=== PATIENT | male | born 1985 | race Caucasian/White ===

== ENCOUNTER 2020-08-20 08:50 | Emergency (ER) | payer SELFPAY ==
[~2020-08-20] VITALS: Ht 162 cm; Wt 86.0 kg
[2020-08-20 09:19] LABS: BACTERIA,URINE NEGATIVE /HPF; BILIRUBIN,URINE NEGATIVE (NEGATIVE); CLARITY,URINE CLEAR; COLOR,URINE YELLOW; GLUCOSE, URINE (UA) NEGATIVE (NEGATIVE); KETONES,URINE NEGATIVE (NEGATIVE); LEUKOCYTE ESTERASE ,URINE NEGATIVE (NEGATIVE); NITRITE,URINE NEGATIVE (NEGATIVE); PROTEIN,URINE NEGATIVE (NEGATIVE); RBC,URINE RARE /HPF; SQUAMOUS EPITHELIAL CELL,UR RARE /HPF
[2020-08-20 09:22] LABS: HEMATOCRIT 49 % (40-54); HEMOGLOBIN 17.8 G/DL (13.3-17.7); MEAN CORPUSCULAR HEMOGLOBIN 30 PG (25-34); MEAN CORPUSCULAR HGB CONC 36 G/DL (32-36); MEAN CORPUSCULAR VOLUME 83 FL (80-99); MEAN PLATELET VOLUME 9.6 FL (7.4-10.4); PLATELET COUNT 236 10^3/uL (130-400)
[2020-08-20 09:23] LABS: BASOPHILS % (AUTO) 0 % (0-10); EOSINOPHILS # (AUTO) 0.1 10^3/uL (0.0-0.3); EOSINOPHILS % (AUTO) 1 % (0-10); LYMPHOCYTES # (AUTO) 1.3 X 10^3 (1.0-4.0); LYMPHOCYTES % (AUTO) 14 % (12-44); MONOCYTES # (AUTO) 0.5 X 10^3 (0.0-1.0); MONOCYTES % (AUTO) 5 % (0-12); NEUTROPHILS # (AUTO) 7.1 X 10^3 (1.8-7.8); NEUTROPHILS % (AUTO) 79 % (42-75)
--- NOTE | 2020-08-20 09:30 | ED General ---
General Chief Complaint: General Problems/Pain Stated Complaint: HIGH BP; DIZZINESS; EXTREMITY TINGLING; HEADACHE Nursing Triage Note: PT WENT TO FOR A HEADACHE AND THEY SENT HIM TO ER. PT REPORTS HE DRANK A BREAKFAST DRINK THEN STARTED GETTING A HEADACHE AND HIS ARMS AND LEGS WERE FEELING TINGLY. Nursing Sepsis Screen: No Definite Risk Source of Information: Patient History of Present Illness Date Seen by Provider: Aug 20, 2020 Time Seen by Provider: 09:00 Initial Comments 35-year-old male presents as referral from the urgent care clinic for high blood pressure evaluation. Patient denies history of high blood pressure, denies that he is ever been on high blood pressure medication. He went to the urgent care this morning because he had a headache as well as some tingling in his fingertips. He took 1000 mg of ibuprofen and says that he is feeling better and no longer has tingling in his fingertips. He denies any chest pain, palpi tations, swelling of extremities, cough or shortness of air. He denies any recent illness, fever or chills. Denies any significant past medical history Allergies and Home Medications Home Medications Lisinopril/Hydrochlorothiazide 1 Each Tablet, 1 EACH PO DAILY Prescribed by: SUSAN MINAYA on 08/20/20 6254 Patient Home Medication List Home Medication List Reviewed: Yes Review of Systems Review of Systems Constitutional: No fever, No malaise, No weakness Respiratory: No cough, No short of breath Cardiovascular: No chest pain, No edema, No palpitations, No syncope, No vascu lar heart diseas Gastrointestinal: No abdominal pain, No loss of appetite, No nausea, No vomiting Musculoskeletal: No back pain, No joint pain Skin: No change in color Psychiatric/Neurological: Headache (resolved); Denies Numbness, Denies Paresthesia; Tingling (resolved in fingertips); Denies Weakness Past Loqkydu-Cmovro-Pusqdi Hx Past Med/Social Hx: Reviewed Nursing Past Med/Soc Hx Patient Social History Alcohol Use: Regular Use Alcohol Beverage of Choice: Beer Smoking Status: Current Everyday Smoker Type Used: Cigarettes 2nd Hand Smoke Exposure: No Recent Infectious Disease Expo: No Recent Hopitalizations: No Seasonal Allergies Seasonal Allergies: No Past Medical History Surgeries: No Respiratory: No Cardiac: Yes Pericarditis Neurological: No Genitourinary: No Gastrointestinal: No Musculoskeletal: No Endocrine: No HEENT: No Cancer: No Psychosocial: No Integumentary: No Blood Disorders: No Physical Exam Vital Signs Vital Signs - First Documented 08/20/20 08:53 Temp 36.0 Pulse 57 Resp 18 B/P (MAP) 179/104 (129) Pulse Ox 98 Capillary Refill : Less Than 3 Seconds Height, Weight, BMI Height: '" Weight: lbs. oz. kg; 32.00 BMI Method: General Appearance: No Apparent Distress, WD/WN Eyes: Bilateral Eye Normal Inspection, Bilateral Eye PERRL, Bilateral Eye EOMI HEENT: PERRL/EOMI, Normal ENT Inspection Neck: Full Range of Motion, Non Tender, Supple Respiratory: Chest Non Tender, Lungs Clear, Normal Breath Sounds Cardiovascular: Regular Rate, Rhythm, No Edema, No Gallop, No JVD, No Murmur, Normal Peripheral Pulses Gastrointestinal: No Organomegaly, Non Tender, Soft Back: Normal Inspection, No CVA Tenderness Extremity: Normal Capillary Refill, Normal Inspection, Non Tender, No Calf Tenderness Neurologic/Psychiatric: Alert, Oriented x3, No Motor/Sensory Deficits, Normal Mood/Affect Skin: Normal Color, Warm/Dry Progress/Results/Core Measures Suspected Sepsis Recent Fever Within 48 Hours: No Infection Criteria Present: None New/Unexplained Altered Menta: No Sepsis Screen: No Definite Risk SIRS Temperature: Pulse: 57 Respiratory Rate: 18 Laboratory Tests 08/20/20 09:08: White Blood Count 9.0 Blood Pressure 179 /104 Mean: 129 Laboratory Tests 08/20/20 09:08: Creatinine 0.85, Platelet Count 236, Total Bilirubin 0.4 Results/Orders Lab Results Laboratory Tests Test 08/20/20 08:53 08/20/20 09:08 Range/Units Urine Color YELLOW Urine Clarity CLEAR Urine pH 7.0 5-9 Urine Specific [place] 1.020 1.016-1.022 Urine Protein NEGATIVE NEGATIVE Urine Glucose (UA) NEGATIVE NEGATIVE Urine Ketones NEGATIVE NEGATIVE Urine Nitrite NEGATIVE NEGATIVE Urine Bilirubin NEGATIVE NEGATIVE Urine Urobilinogen 0.2 < = 1.0 MG/DL Urine Leukocyte Esterase NEGATIVE NEGATIVE Urine RBC (Auto) NEGATIVE NEGATIVE Urine RBC RARE /HPF Urine WBC NONE /HPF Urine Squamous Epithelial Cells RARE /HPF Urine Crystals NONE /LPF Urine Bacteria NEGATIVE /HPF Urine Casts NONE /LPF Urine Mucus NEGATIVE /LPF Urine Culture Indicated NO White Blood Count 9.0 4.3-11.0 10^3/uL Red Blood Count 5.93 H 4.35-5.85 10^6/uL Hemoglobin 17.8 H 13.3-17.7 G/DL Hematocrit 49 40-54 % Mean Corpuscular Volume 83 80-99 FL Mean Corpuscular Hemoglobin 30 25-34 PG Mean Corpuscular Hemoglobin Concent 36 32-36 G/DL Red Cell Distribution Width 11.9 10.0-14.5 % Platelet Count 236 130-400 10^3/uL Mean Platelet Volume 9.6 7.4-10.4 FL Immature Granulocyte % (Auto) 1 % Neutrophils (%) (Auto) 79 H 42-75 % Lymphocytes (%) (Auto) 14 12-44 % Monocytes (%) (Auto) 5 0-12 % Eosinophils (%) (Auto) 1 0-10 % Basophils (%) (Auto) 0 0-10 % Neutrophils # (Auto) 7.1 1.8-7.8 X 10^3 Lymphocytes # (Auto) 1.3 1.0-4.0 X 10^3 Monocytes # (Auto) 0.5 0.0-1.0 X 10^3 Eosinophils # (Auto) 0.1 0.0-0.3 10^3/uL Basophils # (Auto) 0.0 0.0-0.1 10^3/uL Immature Granulocyte # (Auto) 0.1 0.0-0.1 10^3/uL Sodium Level 135 135-145 MMOL/L Potassium Level 3.9 3.6-5.0 MMOL/L Chloride Level 103 98-107 MMOL/L Carbon Dioxide Level 19 L 21-32 MMOL/L Anion Gap 13 5-14 MMOL/L Blood Urea Nitrogen 16 7-18 MG/DL Creatinine 0.85 0.60-1.30 MG/DL Estimat Glomerular Filtration Rate > 60 BUN/Creatinine Ratio 19 Glucose Level 134 H 70-105 MG/DL Calcium Level 9.4 8.5-10.1 MG/DL Corrected Calcium 9.0 8.5-10.1 MG/DL Total Bilirubin 0.4 0.1-1.0 MG/DL Aspartate Amino Transf (AST/SGOT) 22 5-34 U/L Alanine Aminotransferase (ALT/SGPT) 30 0-55 U/L Alkaline Phosphatase 71 40-136 U/L Total Protein 7.6 6.4-8.2 GM/DL Albumin 4.5 3.2-4.5 GM/DL My Orders Orders - SUSAN MINAYA DO Ekg Tracing (08/20/20 09:08) Cbc With Automated Diff (08/20/20 09:08) Comprehensive Metabolic Panel (08/20/20 09:08) Urinalysis (08/20/20 09:08) Vital Signs/I&O 08/20/20 08:53 Temp 36.0 Pulse 57 Resp 18 B/P (MAP) 179/104 (129) Pulse Ox 98 Capillary Refill : Less Than 3 Seconds Blood Pressure Mean: 129 Progress Note : Progress Note asymptomatic during ER visit and at departure. Discussed treating HTN and f/u w PCP (if he would like in 2 days as scheduled) in 2 weeks for re-eval for HTN on new medication. ECG Initial ECG Impression Date: Aug 20, 2020 Initial ECG Impression Time: 09:10 Initial ECG Rate: 48 Initial ECG Rhythm: Normal Sinus Initial ECG Intervals: Normal Initial ECG Comparisson: Unchanged (from ECG 01/04/2016) Departure Impression Primary Impression: Hypertension Qualified Codes: I10 - Essential (primary) hypertension Disposition: 01 HOME, SELF-CARE Condition: Stable Departure-Patient Inst. Decision time for Depature: 09:44 Referrals: NO,LOCAL PHYSICIAN (PCP/Family) Primary Care Physician Patient Instructions: High Blood Pressure (DC) Add. Discharge Instructions: Keep your follow up appointment with your PCP scheduled in 2 days if you would like, otherwise see your PCP in 2 weeks for re-eval for HTN on new med All discharge instructions reviewed with patient and/or family. Voiced understanding. Scripts Lisinopril/Hydrochlorothiazide (Lisinopril-Hctz 10-12.5 mg Tab) 1 Each Tablet 1 EACH PO DAILY, #30 TAB Prov: SUSAN MINAYA DO 08/20/20 SUSAN MINAYA DO Aug 20, 2020 09:30
[2020-08-20 09:36] LABS: POTASSIUM 3.9 MMOL/L (3.6-5.0); SODIUM 135 MMOL/L (135-145)
[2020-08-20 09:37] LABS: ALANINE AMINOTRANSFERASE 30 U/L (0-55); ALBUMIN 4.5 GM/DL (3.2-4.5); ALKALINE PHOSPHATASE 71 U/L (40-136); BILIRUBIN,TOTAL 0.4 MG/DL (0.1-1.0); BUN/CREATININE RATIO 19; CALCIUM 9.4 MG/DL (8.5-10.1); CARBON DIOXIDE 19 MMOL/L (21-32); CHLORIDE 103 MMOL/L (98-107); CREATININE SERUM 0.85 MG/DL (0.60-1.30); GFR ESTIMATED > 60; GLUCOSE 134 MG/DL (70-105); TOTAL PROTEIN 7.6 GM/DL (6.4-8.2)
[2020-08-20] MEDS ORDERED: LISI1TAB29 PO (09:44)
[2020-08-20 09:55] VITALS: BP 178/99
== END 2020-08-20 09:48 | disposition home or self-care (01) ==
LOC: ER FS 08:53
DX: I10 Essential (primary) hypertension (principal); F17.210 Nicotine dependence, cigarettes, uncomplicated
CPT/HCPCS: 36415; 80053; 81000; 85025; 93005

== ENCOUNTER 2021-05-19 18:22 | Emergency (ER) | payer SELFPAY ==
[~2021-05-19] VITALS: Ht 170 cm; Wt 88.0 kg
[~2021-05-19 18:22] MED LIST: LISI1TAB44 PO
[2021-05-19] MEDS ORDERED: PROMETHAZINE/ CODEINE SYRUP 5 ML UDC PO STA (19:22)
--- NOTE | 2021-05-19 19:25 | ED General ---
General Chief Complaint: General Problems/Pain Stated Complaint: COUGH,PASSING OUT,LT ELBOW PAIN Nursing Triage Note: COUGH X 2 MONTHS. STARTED PASSING OUT YESTERDAY WHEN HE COUGHS. PRODUCTIVE COUGH TODAY. PASSED OUT YESTERDAY AND HIT HIS ELBOW ON CONCRETE. Source of Information: Patient History of Present Illness Date Seen by Provider: May 19, 2021 Time Seen by Provider: 19:02 Initial Comments 36-year-old male presenting with complaint of cough for over 2 months. He feels that the cough has been worse in the last few days. He has productive yellow sputum with his cough. Yesterday he was coughing so hard to the point that he passed out x2. He fell and hit his left elbow while this time said he passed out. He denies any fever or chills. He denies having headache, abdominal pain, nausea, vomiting, diarrhea, pain with urination, feeling dizzy or lightheaded. He does have nasal drainage down the back of his throat. He is a smoker but states he has not smoked in the last few days. Associated Systoms: No Chest Pain; Cough; No Diaphoresis, No Fever/Chills, No Headaches, No Loss of Appetite, No Malaise; Nausea/Vomiting (coughing to the point he gags and vomits); No Seizure; Shortness of Air (coughing); No Syncope, No Weakness Allergies and Home Medications Allergies Coded Allergies: No Known Drug Allergies (Unverified , 05/19/21) Patient Home Medication List Home Medication List Reviewed: Yes Azithromycin (Azithromycin) 250 Mg Tablet, 250 MG PO DAILY Prescribed by: MARIAH HERNÁNDEZ on 05/19/212032 Lisinopril/Hydrochlorothiazide (Lisinopril-Hctz 10-12.5 mg Tab) 1 Each Tablet, 1 EACH PO DAILY Prescribed by: SUSAN MINAYA on 08/20/20 09 Prednisone (Prednisone) 20 Mg Tab, 40 MG PO DAILY Prescribed by: MARIAH HERNÁNDEZ on 05/19/212032 Review of Systems Review of Systems Constitutional: No chills, No fever EENTM: nose congestion (sinus drainage down his throat); No epistaxis Respiratory: cough; No hemoptysis; phlegm, short of breath; No stridor, No wheezing Cardiovascular: No chest pain Gastrointestinal: see HPI Genitourinary: no symptoms reported Musculoskeletal: joint pain (left elbow pain due to fall) Skin: no symptoms reported Psychiatric/Neurological: Anxiety Hematologic/Lymphatic: Denies Blood Clots Past Slbkvqi-Xlgtke-Bdlolk Hx Patient Social History Tobacco Use?: Yes Tobacco type used: Cigarettes Use of E-Cig and/or Vaping dev: No Substance use?: No Alcohol Use?: Yes Alcohol type: Beer Pt feels they are or have been: No Seasonal Allergies Seasonal Allergies: No Past Medical History Surgeries: No Respiratory: No Cardiac: Yes Pericarditis Neurological: No Genitourinary: No Gastrointestinal: No Musculoskeletal: No Endocrine: No HEENT: No Cancer: No Psychosocial: No Integumentary: No Blood Disorders: No Physical Exam Vital Signs Vital Signs - First Documented 05/19/21 18:30 Temp 36.5 Pulse 87 Resp 18 B/P (MAP) 157/78 (104) Pulse Ox 97 O2 Delivery Room Air Capillary Refill : Less Than 3 Seconds Height, Weight, BMI Height: '" Weight: lbs. oz. kg; 30.00 BMI Method: General Appearance: No Apparent Distress, WD/WN HEENT: PERRL/EOMI, TMs Normal, Pharynx Normal, Other (mild tenderness over maxillary sinuses) Neck: Full Range of Motion, Normal Inspection, Non Tender, Supple Respiratory: Chest Non Tender, No Accessory Muscle Use, No Respiratory Distress, Rhonci; No Stridor, No Wheezing Cardiovascular: Regular Rate, Rhythm, Normal Peripheral Pulses Gastrointestinal: Normal Bowel Sounds, No Pulsatile Mass, Non Tender, Soft Rectal: Deferred Extremity: Normal Capillary Refill, Normal Inspection, Normal Range of Motion, No Pedal Edema, Other (tender to palpation left elbow without crepitus or effusion) Neurologic/Psychiatric: Alert, Oriented x3, 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 Norm as Tested Skin: Normal Color, Warm/Dry Progress/Results/Core Measures Suspected Sepsis SIRS Temperature: Pulse: 87 Respiratory Rate: 18 Blood Pressure 157 /78 Mean: 104 Results/Orders My Orders Orders - MARIAH HERNÁNDEZ MD Chest Pa/Lat (2 View) (05/19/21 19:22) Elbow 3 View Left (05/19/21 19:22) Promethazine/ Codeine Syrup (Phenergan W (05/19/21 19:22) Prednisone Tablet (Deltasone Tablet) (12/13/21 20:29) Azithromycin Tablet (Zithromax Tablet) (05/19/21 20:29) Vital Signs/I&O 05/19/21 05/19/21 05/19/21 18:30 18:30 20:41 Temp 36.5 Pulse 87 85 Resp 18 14 B/P (MAP) 157/78 (104) 152/82 Pulse Ox 97 98 O2 Delivery Room Air Room Air Room Air Capillary Refill : Less Than 3 Seconds Blood Pressure Mean: 104 Progress Note #1: Progress Note Obtain x-rays of his chest and elbow since he reports that he is coughing to the point that he passed out and fell landing on his elbow. Try giving medication for his cough. Progress Note #2: Progress Note X-rays did not demonstrate any acute infiltrate. His elbow does not show any acute fracture or dislocation. Will treat for more viral bronchitis and use steroids and Z-Remigio since he is a smoker and has had a chronic cough for several months. Encouraged to use Mucinex [id number] to help with his cough Diagnostic Imaging Diagonstic Imaging: Xray Plain Films/CT/US/NM/MRI: chest Comments [facility] [place] [facility] [id number] PT STATUS: REG ER : 1985 PHYSICIAN: MARIAH HERNÁNDEZ MD ADMIT DATE: 05/19/21/ER FS Signed Date of Exam:05/19/21 CHEST PA/LAT (2 VIEW) INDICATION: Worsening cough PA and lateral chest obtained at 7:30 p.m. Heart and mediastinal silhouette are normal in appearance. The lungs are clear. There is no pneumothorax or pleural fluid. IMPRESSION: Negative chest. Dictated by: Dictated on workstation # [id number] Dict: 05/19/211940 Trans: 05/19/211950 [facility] [id number] Interpreted by: ANATOLY VALDIVIA MD Electronically signed by: ANATOLY VALDIVIA MD 05/19/211950 Reviewed: Reviewed by [place] Diagonstic Imaging: Xray Plain Films/CT/US/NM/MRI: elbow Comments [facility] [place], [place] NAME: DONATO [facility] REC#: [id number] PT STATUS: REG ER : 1985 PHYSICIAN: MARIAH HERNÁNDEZ MD ADMIT DATE: 05/19/21/ER FS Signed Date of Exam:05/19/21 ELBOW 3 VIEW LEFT INDICATION: Left elbow pain post fall AP, oblique, and lateral views of the left elbow were obtained. No fracture or acute bony abnormality seen. There is osteophyte formation and joint space narrowing. There is no overt joint effusion. IMPRESSION: Degenerative findings of the left elbow with no acute appearing abnormality. Dictated by: Dictated on workstation # [id number] Dict: 05/19/211939 Trans: 05/19/211946 [facility] [id number] Interpreted by: ANATOLY VALDIVIA MD Electronically signed by: ANATOLY VALDIVIA MD 05/19/211946 Reviewed: Reviewed by Me Departure Impression Primary Impression: Chronic cough Additional Impressions: Tobacco abuse Contusion of left elbow, initial encounter Disposition: HOME, SELF-CARE Condition: Stable Departure-Patient Inst. Decision time for Depature: 20:30 Referrals: NO,LOCAL PHYSICIAN (PCP) Primary Care Physician [facility] Patient Instructions: Quitting Smoking ED, Cough, Adult ED, Minor Contusion ED Add. Discharge Instructions: Take Mucinex to help loosen and thin out your cough and secretions. Take the full course of antibiotics to treat for a possible atypical infection in the lungs. Use the steroid to help with inflammation and cough. Make sure to drink plenty of fluids and stay well-hydrated. This will help with the coughing and make the Mucinex work better. You can establish care with the [facility] by calling [phone] and they can help establish a provider for you. All discharge instructions reviewed with patient and/or family. Voiced under standing. Scripts Prednisone (Prednisone) 20 Mg Tab 40 MG PO DAILY for Cough for 5 Days, #10 TAB 0 Refills Prov: MARIAH HERNÁNDEZ MD 05/19/21 Azithromycin (Azithromycin) 250 Mg Tablet 250 MG PO DAILY for Cough for 4 Days, #4 TAB 0 Refills Prov: MARIAH HERNÁNDEZ MD 05/19/21 MARIAH HERNÁNDEZ MD May 19, 2021 19:25
--- NOTE | 2021-05-19 19:49 | Diagnostic Imaging Report ---
INDICATION: Left elbow pain post fall AP, oblique, and lateral views of the left elbow were obtained. No fracture or acute bony abnormality seen. There is osteophyte formation and joint space narrowing. There is no overt joint effusion. IMPRESSION: Degenerative findings of the left elbow with no acute appearing abnormality. Dictated by: Dictated on workstation # [id number]
--- NOTE | 2021-05-19 19:50 | Diagnostic Imaging Report ---
INDICATION: Worsening cough PA and lateral chest obtained at 7:30 p.m. Heart and mediastinal silhouette are normal in appearance. The lungs are clear. There is no pneumothorax or pleural fluid. IMPRESSION: Negative chest. Dictated by: Dictated on workstation # [id number]
[2021-05-19] MEDS ORDERED: predniSONE 20 MG TAB PO STA (20:29)
[2021-05-19] MEDS ORDERED: AZITHROMYCIN 250 MG TAB (ZITHROMAX) PO STA (20:29)
[2021-05-19] MEDS ORDERED: AZIT250T12 PO (20:33)
[2021-05-19] MEDS ORDERED: PRD20T PO (20:33)
[2021-05-19 20:41] VITALS: BP 152/82
== END 2021-05-19 20:43 | disposition home or self-care (01) ==
LOC: EDUNIT# 18:22 → ER FS 18:24
DX: S50.02XA Contusion of left elbow, initial encounter (principal); R05.9 Cough, unspecified; F17.200 Nicotine dependence, unspecified, uncomplicated; W22.8XXA Striking against or struck by other objects, initial encounter
CPT/HCPCS: 71046; 73080; 99283